=== PATIENT | male | born 1975 | race Caucasian/White ===

== ENCOUNTER 2021-11-18 07:48 | Outpatient (REF) | payer OTHER, SELFPAY ==
--- NOTE | ~2021-11-18 | XR_ITS ---
EXAMINATION: XR CHEST XR LUMBAR SPINE CLINICAL INFORMATION: Dyspnea. COMPARISON: None TECHNIQUE: Chest 2 views. Lumbar spine 3 views. FINDINGS: CHEST: The lungs are well-expanded and clear of acute pneumonic process. The heart size and pulmonary vascularity normal. There is mild spondylosis of dorsal spine. No lytic process. LUMBAR SPINE: There is normal lumbar lordosis. The vertebral heights and alignment is normal. There is mild loss of L5/S1 disc height with ventral spondylosis. The rest of the disc heights are normal. SI joints are normal. No visible acute fracture, dislocation or lytic process seen. XR/XR lumbar spine 2-3V IMPRESSION: 1. Unremarkable chest exam. 2. Degenerative disc changes L5-S1 disc level with mild ventral spondylosis. No visible acute fracture, dislocation or lytic process seen.
--- NOTE | ~2021-11-18 | XR_ITS ---
EXAMINATION: XR CHEST XR LUMBAR SPINE CLINICAL INFORMATION: Dyspnea. COMPARISON: None TECHNIQUE: Chest 2 views. Lumbar spine 3 views. FINDINGS: CHEST: The lungs are well-expanded and clear of acute pneumonic process. The heart size and pulmonary vascularity normal. There is mild spondylosis of dorsal spine. No lytic process. LUMBAR SPINE: There is normal lumbar lordosis. The vertebral heights and alignment is normal. There is mild loss of L5/S1 disc height with ventral spondylosis. The rest of the disc heights are normal. SI joints are normal. No visible acute fracture, dislocation or lytic process seen. XR/XR chest 1V IMPRESSION: 1. Unremarkable chest exam. 2. Degenerative disc changes L5-S1 disc level with mild ventral spondylosis. No visible acute fracture, dislocation or lytic process seen.
[2021-11-18 11:51] LABS: MANUAL DIFF FLAG NO
[2021-11-18 11:53] LABS: Basophils Percent Auto 0.5 % (0-2); Eosinophils Absolute Auto 0.2 X10*3/uL (0.0-0.4); Hematocrit 47.2 % (42.0-52.0); Imm Gran Abs Auto 0.04 X10*3/uL (0.00-0.03); Imm Gran Pct Auto 0.7 % (0.0-0.4); Lymphocytes Absolute Auto 1.8 X10*3/uL (1.2-4.9); Lymphocytes Percent Auto 31.5 % (20-40); Mean Corpuscular HGB Conc 33.9 g/dl (31.0-36.0); Mean Corpuscular Hemoglobin 28.8 pg (27.0-33.0); Mean Corpuscular Volume 84.9 fL (80.0-98.0); Mean Platelet Volume 10.4 fL (9.4-12.4); Monocytes Absolute Auto 0.6 X10*3/uL (0.1-1.2); Monocytes Percent Auto 10.9 % (2-11); Neutrophils Percent Auto 53.4 % (45-73); Platelet Count 212 X10*3/uL (160-400); Red Blood Count 5.56 X10*6/uL (4.60-5.80); Red Cell Distribution Width 12.7 % (11.0-16.0); White Blood Count 5.6 X10*3/uL (4.8-10.8)
[2021-11-18 12:10] LABS: Alanine Aminotransferase 48 U/L (0-40); Albumin Level 4.7 g/dL (3.5-5.0); Alkaline Phosphatase 73 U/L (39-117); Anion Gap 15 (12-20); Aspartate Amino Transferase 35 U/L (5-37); Bilirubin Total 0.7 mg/dL (0.0-1.0); Blood Urea Nitrogen 18 mg/dL (9-16); Calcium 9.5 mg/dL (8.4-10.2); Carbon Dioxide 25 mmol/L (22-29); Chloride 103 mmol/L (96-108); Cholesterol 229 mg/dL; Estimated Glomerular Filt Rate > 60; Glucose Fasting 128 mg/dL (60-99); HDL Cholesterol 56 mg/dL; LDL Cholesterol Calculated 159 mg/dl; Potassium 4.4 mmol/L (3.3-5.1); Sodium 139 mmol/L (135-145); Total Protein 8.1 g/dL (6.5-8.0); Triglycerides 72 mg/dL
[2021-11-18 12:34] LABS: Vitamin D 25-OH Total 30.4 ng/mL (>30)
[2021-11-18 12:45] LABS: Folate 14.2 ng/mL (> or = 4.0); Vitamin B12 381 pg/mL (200-900)
== END 2021-11-18 07:49 | disposition home or self-care (01) ==
LOC: HO.HMGCX 07:48
PROVIDERS: PCP Internal Medicine; Visit Provider Internal Medicine
DX: Z00.00 Encounter for general adult medical examination without abnormal findings (principal); R06.09 Other forms of dyspnea; M54.50 Low back pain, unspecified
CPT/HCPCS: 36415; 71045; 72100; 80053; 80061; 82306; 82607; 82746; 85025

== ENCOUNTER → 2021-12-18 15:40 | Outpatient (REF) | payer OTHER, SELFPAY ==
--- NOTE | 2021-12-18 15:43 | CA_ITS ---
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 The visually estimated ejection fraction is between 55-60%. - No obvious valvular pathology seen on this study. Findings Left Ventricle Normal left ventricular cavity size. There is normal left ventricular wall thickness. The left ventricular systolic function is normal. The visually estimated ejection fraction is between 55-60%. There is no evidence of regional wall motion abnormalities. Diastolic function is normal for age. Right Ventricle Normal right ventricular cavity size and systolic function. Atria Both atria are normal in size. Aortic Valve There is a normal trileaflet aortic valve. There is no aortic valve stenosis. There is no aortic valve regurgitation. Mitral Valve The mitral valve appears normal. There is trace mitral valve regurgitation. There is no mitral valve stenosis. Pulmonic Valve The pulmonic valve is likely normal. Tricuspid Valve Normal tricuspid valve structure. There is mild tricuspid valve regurgitation. There is no evidence of pulmonary hypertension. Great Vessels The aortic annulus, sinuses of valsalva, and asc aorta are normal in size. Venous The inferior vena cava is normal in size and collapses greater than 50% with inspiration. Pericardium/Pleural There is no evidence of pericardial effusion. Prior Study Comparison No prior study available for comparison. Recommendations, Care & Conclusions No obvious valvular pathology seen on this study. Measurements 2D Linear Measurements IVSd: 1.08 0.6-0.9/0.6-1.0 cm LVIDd: 5.22 3.9-5.3/4.2-5.9 cm LVIDd Index: 2.35 2.4-3.2/2.2-3.1 cm/m2 LVIDs: 3.32 2.0-3.6 cm LVPWd: 0.97 0.7-1.1 cm Ao Root: 3.50 2.1-3.5 cm LA Diam: 3.70 2.7-3.8/3.0-4.0 cm LAIDs Index: 1.67 1.5-2.3 cm/m2 LV Mass: 251.52 67-162/88-224 g LV Mass Index: 113.30 43-95/49-115 g/m2 LVOT Diam: 2.30 3.0+(-)1.3 cm 2D Systolic Function EF 4C: 52.10 >55% EF 2C: 61.40 >55% EF BiP: 58.40 >55% Mitral Valve MV Pk E: 0.65 MV PK A: 0.52 MV Decel Time: 325.00 E/A: 1.20 E'Lateral: 16.10 E'Medial: 7.83 E/E' Med: 8.30 E/E' Lat: 4.00 PHT: 95.00 MVA PHT: 2.32 Decel Mcdonough: 1.99 Aortic Valve AoV Pk Nilton: 1.72 AoV Mn Nilton: 1.04 AoV VTI: 0.35 AoV Pk Grad: 12.00 Aov Mn Grad: 5.00 KATHERINE Cont.VTI: 3.47 LVOT LVOT Pk Nilton: 1.51 LVOT Mn Nilton: 1.02 LVOT VTI: 0.30 LVOT Pk Grad: 9.00 LVOT Mn Grad: 5.00 LVOT Diam: 2.30 LVOT Area: 4.15 Diastolic Function MV Pk E: 0.65 MV Pk A: 0.52 E/A: 1.20 E'Medial: 7.83 E/E' Med: 8.30 E' Laterial: 16.10 E/E' Lat: 4.00 Right Ventricle TAPSE (mm): 32.00 TVS' Nilton: 13.00 Tricuspid Valve TR Pk Nilton: 2.24 TR Pk Grad: 20.00 RA Press: 3.00 RVSP: 23.00 Great Vessels Aorta Ao Root-2D: 3.50 2.0-3.7 cm Ao Asc: 3.10 2.1-3.4 cm Pulmonary Valve PV Pk Nilton: 1.11 Peak PV Grad: 5.00 Updated in Other Vendor System with Status of Final Gordon Heard MD electronically signed on 12/19/2021 1:05:21 PM with status of Final
== END ==
LOC: HO.CARD 15:40
PROVIDERS: PCP Internal Medicine; Visit Provider Internal Medicine
DX: R06.09 Other forms of dyspnea (principal)
CPT/HCPCS: 93306

== ENCOUNTER → 2021-12-25 15:35 | Outpatient (BNVA) | payer OTHER, SELFPAY | PROVIDERS: PCP Internal Medicine; Visit Provider Internal Medicine | DX: K62.5 Hemorrhage of anus and rectum (principal); K64.9 Unspecified hemorrhoids; N40.0 Benign prostatic hyperplasia without lower urinary tract symptoms | CPT/HCPCS: 99202 ==

== ENCOUNTER 2022-02-20 15:37 | Outpatient (REF) | payer OTHER, SELFPAY ==
[2022-02-20 17:33] LABS: Hematocrit 42.1 % (42.0-52.0); Hemoglobin 14.4 g/dl (14.0-18.0); Mean Corpuscular HGB Conc 34.2 g/dl (31.0-36.0); Mean Corpuscular Hemoglobin 29.1 pg (27.0-33.0); Mean Corpuscular Volume 85.1 fL (80.0-98.0); Platelet Count 198 X10*3/uL (160-400); Red Blood Count 4.95 X10*6/uL (4.60-5.80); Red Cell Distribution Width 12.2 % (11.0-16.0); White Blood Count 8.1 X10*3/uL (4.8-10.8)
== END 2022-02-20 15:38 | disposition home or self-care (01) ==
LOC: HO.LAB 15:37
PROVIDERS: PCP Internal Medicine; Visit Provider Internal Medicine
DX: K62.5 Hemorrhage of anus and rectum (principal); K64.9 Unspecified hemorrhoids
CPT/HCPCS: 36415; 85027; 99212

== ENCOUNTER 2022-03-10 07:49 | Outpatient (REF) | payer OTHER, SELFPAY ==
[2022-03-10 08:51] LABS: Estimated Average Glucose 160 mg/dL; Hemoglobin A1c % 7.2 %
[2022-03-10 09:11] LABS: Alanine Aminotransferase 35 U/L (0-40); Albumin Level 4.3 g/dL (3.5-5.0); Alkaline Phosphatase 63 U/L (39-117); Anion Gap 10 (12-20); Aspartate Amino Transferase 21 U/L (5-37); Bilirubin Total 0.8 mg/dL (0.0-1.0); Blood Urea Nitrogen 17 mg/dL (9-16); Calcium 9.5 mg/dL (8.4-10.2); Carbon Dioxide 27 mmol/L (22-29); Chloride 107 mmol/L (96-108); Cholesterol 213 mg/dL; Estimated Glomerular Filt Rate > 60; Glucose Fasting 157 mg/dL (60-99); HDL Cholesterol 44 mg/dL; LDL Cholesterol Calculated 146 mg/dl; Sodium 140 mmol/L (135-145); Total Protein 7.3 g/dL (6.5-8.0); Triglycerides 116 mg/dL
== END 2022-03-10 07:50 | disposition home or self-care (01) ==
LOC: HO.LAB 07:49
PROVIDERS: PCP Internal Medicine; Visit Provider Internal Medicine
DX: E78.5 Hyperlipidemia, unspecified (principal); R73.9 Hyperglycemia, unspecified
CPT/HCPCS: 36415; 80053; 80061; 83036

== ENCOUNTER 2022-04-12 11:48 | Day surgery (SDC) | payer OTHER, SELFPAY ==
[2022-04-06 15:22] VITALS: BMI 29.1
[2022-04-12 11:49] VITALS: BP 170/86; PULSE 64; RESP 16; TEMP 37.3; O2SAT 99; BMI 28.2
--- NOTE | 2022-04-12 11:59 | HO.ANESPROP2 ---
HPI - Anesthesia Eval Consult details Narrative: For colonoscopy [facility] Active Problems Active Problems: All Active Problems (Updated 04/06/22 @ 15:17 by Lynnette Saxena, RN) WILCOX (dyspnea on exertion) (Acute) Annual physical exam (Acute) Lower back pain (Acute) Rectal bleed (Acute) Hyperglycemia (Acute) Hyperlipidemia (Acute) Hemorrhoids (Acute) Enlarged prostate on rectal examination (Acute) DM type 2 (diabetes mellitus, type 2) (Acute) Past Medical History Medical History (Updated 04/06/22 @ 15:17 by Lynnette Saxena RN) Diabetes Elevated cholesterol Narrative: essentially normal echo Family History Family History Father CVA (cerebral vascular accident), Onset Age: 65 Mother Diabetes CVA (cerebral vascular accident), Onset Age: 70 Family history of problems with anesthesia: No Surgical History Surgical History No pertinent past surgical history History of Problems with Anesthesia: No Social History Social History Household Members Other:: , from [place], works at [employer] Housing: Apartment Patient Tobacco Use Status: Never used Tobacco e-Cigarette/Vaping Use: Never Used Second Hand Smoke Exposure: No Use of substances other than those prescribed or required for medical reasons: No Are you DNR?: No Advance Directives: No Advance Directives Information Provided: Yes Current occupational status: employed Cognitive needs: No Hearing needs: No Vision needs: No Meds Allergies Allergy/AdvReac Type Severity Reaction Status Date / Time No Known Allergies Allergy Verified 03/14/22 14:29 Exam Exam Date and Time: April 12, 2022 1159 Height,Weight and Vital Signs: Height 6 ft 2 in Weight 102.965 kg Airway Mallampati Class: I TM Dist: >3cm Neck ROM: Full Loose/Missing/Broken Teeth: No Heart: ok Lungs: ok Assessment and Plan Assessment Anesthesia Assessment: Anesthesia Plan Discussed and Chart Reviewed Final Anesthetic Review Family History of Problems with Anesthesia: No History of Problems with Anesthesia: No NPO: Yes ASA Class: II Final Preanesthetic Review: No Changes in Pt Med Stat, Meds/Allgs Chart Reviewed, Consent Obtained/Reviewed and Anes Risks/Benef Reviewed Patient Risk: Low Procedure Risk: Low Anesthetic Plan Anesthetic Plan: MAC: and Agree w/ Assess. and Plan Disposition: Standard PACU
[2022-04-12 12:04] LABS: Glucose, Whole Blood 109 mg/dL (60-115)
[2022-04-12] MEDS: Lactated Ringers 1,000 ML 100 ML IVCONT (12:14)
[2022-04-12 12:58] VITALS: BP 101/59; PULSE 70; RESP 16; TEMP 36.7; O2SAT 98
--- NOTE | 2022-04-12 12:59 | MHC.SHP ---
Pre-Procedural Eval Section A Date of Service: 04/12/22 Section B Chief Complaint: rectal bleeding,hemorrhoids,benign prostatic Details of Present Illness: Cont to have intermittent bleeding without any changes in BMs. Relevant Social History: None Present Medications: see Short Stay Collaborative assessment Medical History: No relevant PMH History of Previous Operations: No relevant previous surgery Allergies: Allergies Allergy/AdvReac Type Severity Reaction Status Date / Time No Known Allergies Allergy Verified 04/12/22 12:08 Review of Systems Review of Systems Comment: 10 point ROS negative except as above Exam Exam Comment: Gen appear: No acute distress HEENT: no icterus Chest: No overt resp distress Abd: soft, nontender, nondistended Psych: Stable affect, answering questions appropriately Neuro: A/Ox3 noted to move all extremities spontaneously Ext: no peripheral edema Plan Diagnosis/Plan: Unchanged I have reviewed the history and physical and performed a pertinent physical examination on my patient. No changes have occurred unless specified. Time Spent With Patient Time: Total time managing care of this patient today ____ minutes.
--- NOTE | 2022-04-12 13:00 | P.OP_ITS ---
Operative Note Operative Note Date of Service: 04/12/22 Narrative: Procedure: Colonoscopy Indication: BRBPR Endoscopist: Daly Hilton MD Anesthesia Provider: Dr Abhishek Rader Anesthesia type: MAC Instrument: Olympus [id number]-[id number] Consent: Indication, risks vs benefits, and alternatives were discussed with the patient who gave written informed consent to proceed. An well services operator was utilized to assist with the consent. EKG, pulse, pulse oximetry and blood pressure were monitored throughout the procedure. Please see anesthesia flowsheet. Procedure: The patient was brought to the procedure room and placed in the left lateral decubitus position. IV medications were administered by the anesthesia provider in attendance. A digital rectal exam was performed which was normal. The colonoscope was then inserted through the anus and advanced through the colon to the cecum at 70 cm,and terminal ileum. Appendiceal orifice and ileocecal valve are identified.Mucosa was carefully examined under high definition white light as the instrument was slowly withdrawn in a retrograde panoramic fashion. Ascending colon was intubated twice. Retroflexion was performed in rectum. The procedure was not difficult. There were no immediate obvious complications. The quality of the prep was BBPS: 2+3+3 = adequate Withdrawal time 17 minutes. Limitations: No limitations. Findings: Mucosa: Patchy erosions with whitish exudate and erythema worse in rectum and progressively improved until 55 cm in descending colon. Cold forceps biospsies were obtained from descending, sigmoid and rectum. Protruding lesions: * 1 sessile polyp of size 2 mm in transverse colon. Cold forceps polypectomy was performed. The polyp was completely removed and retrieved. * 1 sessile polyp of size 2 mm in rectum. Cold forceps polypectomy was performed. The polyp was completely removed and retrieved. * Large internal hemorrhoids [without] stigmata of recent bleeding. Impression: 1. Abnormal left colon mucosa (biopsy) 2. Total of 2 polyps removed from transverse colon and rectum. 3. Internal hemorrhoids Recommendations: - Follow path results. Suspect mild UC however will await histology to r/o infection before initiating steroids.
[2022-04-12 13:27] VITALS: BP 110/60; PULSE 68; RESP 18; TEMP 36.7; O2SAT 99
== END 2022-04-12 13:45 | disposition home or self-care (01) ==
PROVIDERS: PCP Internal Medicine; Visit Provider Internal Medicine
PROC: 0DJD8ZZ Inspection of Lower Intestinal Tract, Via Natural or Artificial Opening Endoscopic (ICD-10-PCS; CPT 45378; principal; 2022-04-12 12:40)
DX: K62.5 Hemorrhage of anus and rectum (principal); D12.3 Benign neoplasm of transverse colon; K62.1 Rectal polyp; K64.8 Other hemorrhoids; K63.89 Other specified diseases of intestine; N40.0 Benign prostatic hyperplasia without lower urinary tract symptoms; E78.00 Pure hypercholesterolemia, unspecified; E11.9 Type 2 diabetes mellitus without complications; Z79.84 Long term (current) use of oral hypoglycemic drugs; Z79.899 Other long term (current) drug therapy
CPT/HCPCS: 45380; 82947; 88305

== ENCOUNTER → 2022-04-27 12:58 | Outpatient (BNVA) | payer OTHER, SELFPAY | PROVIDERS: PCP Internal Medicine; Visit Provider Internal Medicine | DX: K64.9 Unspecified hemorrhoids (principal); K62.5 Hemorrhage of anus and rectum | CPT/HCPCS: 99212 ==

== ENCOUNTER 2022-07-21 08:47 | Outpatient (REF) | payer OTHER, SELFPAY ==
[2022-07-21 11:45] LABS: Estimated Average Glucose 126 mg/dL
[2022-07-21 11:47] LABS: Alanine Aminotransferase 33 U/L (0-40); Albumin Level 4.4 g/dL (3.5-5.0); Alkaline Phosphatase 60 U/L (39-117); Anion Gap 11 (12-20); Aspartate Amino Transferase 27 U/L (5-37); Blood Urea Nitrogen 13 mg/dL (9-16); Calcium 9.4 mg/dL (8.4-10.2); Carbon Dioxide 26 mmol/L (22-29); Chloride 108 mmol/L (96-108); Cholesterol 149 mg/dL; Estimated Glomerular Filt Rate > 60; Glucose Fasting 112 mg/dL (60-99); HDL Cholesterol 50 mg/dL; LDL Cholesterol Calculated 88 mg/dl; Sodium 141 mmol/L (135-145); Total Protein 7.1 g/dL (6.5-8.0); Triglycerides 59 mg/dL
[2022-07-21 12:06] LABS: Creatinine Urine 114.63 mg/dL; Microalbumin Urine < 5.0 mg/L
== END 2022-07-21 08:48 | disposition home or self-care (01) ==
LOC: HO.HMGCLDS 08:47
PROVIDERS: PCP Internal Medicine; Visit Provider Internal Medicine
DX: E11.9 Type 2 diabetes mellitus without complications (principal); E78.5 Hyperlipidemia, unspecified
CPT/HCPCS: 36415; 80053; 80061; 82043; 83036

== ENCOUNTER → 2022-07-30 13:26 | Outpatient (BNVA) | payer OTHER, SELFPAY | PROVIDERS: PCP Internal Medicine; Visit Provider Internal Medicine | DX: K64.9 Unspecified hemorrhoids (principal); K62.5 Hemorrhage of anus and rectum | CPT/HCPCS: 99212 ==

== ENCOUNTER 2023-05-04 07:17 | Outpatient (REF) | payer OTHER, SELFPAY ==
[2023-05-04 11:55] LABS: MANUAL DIFF FLAG NO
[2023-05-04 12:02] LABS: Basophils Percent Auto 0.5 % (0-2); Eosinophils Absolute Auto 0.3 X10*3/uL (0.0-0.4); Eosinophils Percent Auto 4.1 % (0-4); Imm Gran Abs Auto 0.05 X10*3/uL (0.00-0.03); Imm Gran Pct Auto 0.8 % (0.0-0.4); Lymphocytes Absolute Auto 1.7 X10*3/uL (1.2-4.9); Lymphocytes Percent Auto 28.6 % (20-40); Mean Corpuscular HGB Conc 34.1 g/dl (31.0-36.0); Mean Corpuscular Hemoglobin 29.7 pg (27.0-33.0); Mean Corpuscular Volume 87.1 fL (80.0-98.0); Mean Platelet Volume 10.5 fL (9.4-12.4); Monocytes Absolute Auto 0.6 X10*3/uL (0.1-1.2); Monocytes Percent Auto 10.1 % (2-11); Neutrophils Absolute Auto 3.4 x10*3/uL (2.0-8.3); Neutrophils Percent Auto 55.9 % (45-73); Platelet Count 229 X10*3/uL (160-400); Red Blood Count 5.05 X10*6/uL (4.60-5.80); Red Cell Distribution Width 12.7 % (11.0-16.0); White Blood Count 6.1 X10*3/uL (4.8-10.8)
[2023-05-04 12:11] LABS: Estimated Average Glucose 128 mg/dL; Hemoglobin A1c % 6.1 % (<6.0)
[2023-05-04 12:34] LABS: Alanine Aminotransferase 32 U/L (0-40); Albumin Level 4.2 g/dL (3.5-5.0); Alkaline Phosphatase 62 U/L (39-117); Anion Gap 10 (12-20); Aspartate Amino Transferase 37 U/L (5-37); Bilirubin Total 0.5 mg/dL (0.0-1.0); Blood Urea Nitrogen 16 mg/dL (9-16); Calcium 9.6 mg/dL (8.4-10.2); Carbon Dioxide 26 mmol/L (22-29); Chloride 109 mmol/L (96-108); Cholesterol 195 mg/dL (<200); Estimated Glomerular Filt Rate > 60; Glucose Fasting 120 mg/dL (60-99); HDL Cholesterol 53 mg/dL (>40); LDL Cholesterol Calculated 132 mg/dL (<100); Potassium 4.3 mmol/L (3.3-5.1); Sodium 141 mmol/L (135-145); Total Protein 7.5 g/dL (6.5-8.0); Triglycerides 51 mg/dL (<150)
[2023-05-04 13:04] LABS: Creatinine Urine 216.91 mg/dL; Microalbum/Creatinine Ratio Ur 3.6 ug/mg cr (<30)
== END 2023-05-04 07:18 | disposition home or self-care (01) ==
LOC: HO.HMGCLDS 07:17
PROVIDERS: PCP Internal Medicine; Visit Provider Internal Medicine
DX: E78.5 Hyperlipidemia, unspecified (principal); E11.9 Type 2 diabetes mellitus without complications
CPT/HCPCS: 36415; 80053; 80061; 82043; 82570; 83036; 85025

== ENCOUNTER 2023-05-08 13:42 | Outpatient (AMB) | payer OTHER, SELFPAY ==
--- NOTE | 2023-05-08 14:26 | MHC.PC.OV ---
Vital Signs 05/08/23 14:29 Height 6 ft 2 in Weight 220 lb BMI 28.2 BP 118/74 Blood Pressure Location Rt brachial Position Sitting Pulse 61 Pulse Source Pulse Oximeter Pulse Oximetry (%) 98 Oxygen Delivery Method Room Air Intake Visit Reasons: Followup diabetes/htn Information Interpreted: non-clinical & clinical Accompanied by: [place] Child Allergies No Known Allergies Allergy (Verified 05/08/23 14:30) Medication List - Last Reconciled 05/08/23 by Gunjan Majano MD atorvastatin 20 mg PO DAILY blood sugar diagnostic (OneTouch Ultra Test strips) 1 QD blood-glucose meter (OneTouch Ultra2 Meter) As directed metformin 850 mg PO BID Tobacco use date assessed: 05/08/23 Dental Screening Dental Screen Date: 05/08/23 Did you have a dental visit in the last 12 months?: No Did you have a dental problem in the last 6 months where you did not have access to dental care?: No Was dental information given to patient?: Patient has dentist HPI Followup diabetes/htn HPI Details Pt presents for PE. DM 2, hyperlipid, are stable on meds. PFSH Medical History Diabetes Elevated cholesterol Surgical History Hx of colonoscopy No pertinent past surgical history Family History Father CVA (cerebral vascular accident), Onset Age: 65 Mother Diabetes CVA (cerebral vascular accident), Onset Age: 70 Social History Household Members Other:: , from [place], works at [employer] Housing: Apartment Patient Tobacco Use Status: Never used Tobacco e-Cigarette/Vaping Use: Never Used Second Hand Smoke Exposure: No Current occupational status: employed Cognitive needs: No Hearing needs: No Vision needs: No Questionnaire PHQ-9 Over the last 2 weeks, how often have you been bothered by any of the following problems? 1. Little interest or pleasure in doing things: not at all 2. Feeling down, depressed, or hopeless: not at all 3. Trouble falling or staying asleep, or sleeping too much: not at all 4. Feeling tired or having little energy: not at all 5. Poor appetite or overeating: not at all 6. Feeling bad about yourself - or that you are a failure or have let yourself or your family down: not at all 7. Trouble concentrating on things, such as reading the newspaper or watching television: not at all 8. Moving or speaking so slowly that other people could have noticed. Or the opposite - being so fidgety or restless that you have been moving around a lot more than usual: not at all 9. Thoughts that you would be better off or of hurting yourself in some way: not at all Total score: 0 Depression Screening Interpretation: Negative Depression Screening Done: Yes Source: Developed by Drs. Solomon Qureshi, Elissa Carranza, Gumaro Little and colleagues, with an educational karina from [employer]. Thrive Questionnaire Date Thrive assessed: 05/08/23 I am a: Patient What is your living situation today?: I have a steady place to live Within the past 12 months, did the food you bought not last and you didn't have the money to get more?: Never true Within the past 12 months, did you worry whether your food would run out before you got money to buy more?: Never true Do you have trouble paying for medicines?: No Do you have trouble getting transportation to medical appointments?: No Do you have trouble paying your heating and electricity bill?: No Do you have trouble taking care of your child, family member or friend?: No Do you have trouble with day-to-day activities such as bathing, preparing meals, shopping, managing finances, etc.?: No Are you currently unemployed and looking for a job?: No Are you interested in more education?: No Please select the resources that you would like help with: None THRIVE Score: 0 AUDIT C Alcohol Use Questionnaire (AUDIT-C) 1. How often do you have a drink containing alcohol?: Monthly or less 2. How many drinks containing alcohol do you have on a typical day when you are drinking?: 1 or 2 3. How often do you have six or more drinks on one occasion?: Never Total Score: 1 BRITTNEY-7 AMB Questionnaire BRITTNEY-7 Date BRITTNEY - 7 assessed: 05/08/23 Feeling nervous, anxious, or on edge: 0 = Not at all Not being able to stop or control worryin = Not at all Worrying too much about different things: 0 = Not at all Trouble relaxin = Not at all Being so restless that it is hard to sit still: 0 = Not at all Becoming easily annoyed or irritable: 0 = Not at all Feeling afraid as if something awful might happen: 0 = Not at all Total BRITTNEY-7 score (0-4 normal; 5-9 mild; 10-14 moderate; 15-21 severe): 0 Source: Developed by Drs. Solomon Qureshi, Elissa Carranza, Gumaro Little and colleagues, with an educational karina from [employer]. Review of Systems Const All systems reviewed & are unremarkable except as noted in HPI and below Reports no additional complaints Eyes Reports no additional complaints ENT Reports no additional complaints Card Reports no additional complaints Resp Reports no additional complaints GI Reports no additional complaints Reports no additional complaints Physical exam (Primary Care) Vital Signs: Last Vital Signs Pulse 61 05/08/23 14:29 BP 118/74 05/08/23 14:29 Pulse Ox 98 05/08/23 14:29 Oxygen Delivery Method Room Air 05/08/23 14:29 BMI result Body Mass Index 28.2 Tobacco/Smoking Status: Tobacco use Status Tobacco use date assessed 05/08/23 05/08/23 14:34 Patient Tobacco Use Status Never used Tobacco 05/08/23 14:42 Tobacco use type 05/08/23 14:42 e-Cigarette/Vaping Use Never Used 05/08/23 14:34 PHQ-9: PHQ-9 Score PHQ-9: Total score 0 05/08/23 14:39 Depression Screening Interpretation: Negative Thrive Assessment: Date of Thrive Assessment Date Thrive assessed 05/08/23 05/08/23 14:34 Const General: no acute distress HENMT Head: Yes normal to inspection Ears: hearing grossly normal bilaterally Face and sinus: Yes normal facial exam Mouth: Normal oral and palatal mucosa present Neck Neck: Yes no lymphadenopathy and Yes supple Resp Effort & Inspection: normal respiratory effort Auscultation: clear to auscultation bilaterally Cardio Rhythm: regular rhythm Heart sounds: S1 normal heart sound present and S2 normal heart sound present GI Inspection: Yes normal to inspection Palpation (GI): Soft to palpation Percussion: Yes normal to percussion Auscultation: normal bowel sounds Extrem Other: Diabetic foot exam skin is intact monofilament and vibration sensation intact bilaterally General: Yes no clubbing, cyanosis or edema Assessment and Plan Assessment & Plan (1) DM type 2 (diabetes mellitus, type 2): Code(s): E11.9 - Type 2 diabetes mellitus without complications Plan: A1c is 6.1, ADA diet increase exercise discussed with the patient. Continue metformin follow-up in 6 months with a fasting labs before. Patient is up-to-date with diabetic eye exam (2) Hyperlipidemia: Code(s): E78.5 - Hyperlipidemia, unspecified Plan: Restart atorvastatin (3) Annual physical exam: Code(s): Z00.00 - Encounter for general adult medical examination without abnormal findings Plan: Well-balanced diet regular physical activity discussed with the patient return in 6 months with a fasting labs before (4) Hx of colonoscopy: Comment: 03/2022 1 tubular adenoma, Dr. Hilton , recheck 5 yrs Code(s): Z98.890 - Other specified postprocedural states Orders: Orders Comprehensive [place]. Panel Fast 6 Months E11.9 - Type 2 diabetes mellitus without complications, E78.5 - Hyperlipidemia, unspecified, R73.9 - Hyperglycemia, unspecified Complete Blood Count Auto Diff 6 Months E11.9 - Type 2 diabetes mellitus without complications, E78.5 - Hyperlipidemia, unspecified, R73.9 - Hyperglycemia, unspecified Lipid Panel 6 Months E11.9 - Type 2 diabetes mellitus without complications, E78.5 - Hyperlipidemia, unspecified, R73.9 - Hyperglycemia, unspecified Hemoglobin A1c 6 Months E11.9 - Type 2 diabetes mellitus without complications, E78.5 - Hyperlipidemia, unspecified, R73.9 - Hyperglycemia, unspecified Microalbumin, Random (w Creat) 6 Months E11.9 - Type 2 diabetes mellitus without complications, E78.5 - Hyperlipidemia, unspecified, R73.9 - Hyperglycemia, unspecified Medications: New blood-glucose meter (OneTouch Ultra2 Meter) As directed 1 ea 0RF blood sugar diagnostic (OneTouch Ultra Test strips) 1 QD 100 ea 3RF Refilled atorvastatin 20 mg PO DAILY 90 tabs 3RF metformin 850 mg PO BID 180 tabs 3RF Coding Level of Care Code Est Pt Prev Care 40-64y(97804) Diagnoses DM type 2 (diabetes mellitus, type 2) E11.9 Hyperlipidemia E78.5 Annual physical exam Z00.00 Hx of colonoscopy Z98.890
[2023-05-08 14:29] VITALS: BP 118/74; PULSE 61; O2SAT 98; BMI 28.2
== END 2023-05-08 15:12 | disposition home or self-care (01) ==
PROVIDERS: PCP Internal Medicine; Visit Provider Internal Medicine
DX: E11.9 Type 2 diabetes mellitus without complications (principal); E78.5 Hyperlipidemia, unspecified; Z00.00 Encounter for general adult medical examination without abnormal findings; Z98.890 Other specified postprocedural states
CPT/HCPCS: 99396

== ENCOUNTER 2023-11-09 10:31 | Outpatient (REF) | payer OTHER, SELFPAY ==
[2023-11-09 13:08] LABS: MANUAL DIFF FLAG NO
[2023-11-09 13:10] LABS: Basophils Percent Auto 0.4 % (0-2); Eosinophils Absolute Auto 0.3 X10*3/uL (0.0-0.4); Eosinophils Percent Auto 4.8 % (0-4); Hematocrit 43.3 % (42.0-52.0); Hemoglobin 14.8 g/dl (14.0-18.0); Imm Gran Abs Auto 0.06 X10*3/uL (0.00-0.03); Imm Gran Pct Auto 0.8 % (0.0-0.4); Lymphocytes Absolute Auto 1.6 X10*3/uL (1.2-4.9); Lymphocytes Percent Auto 22.3 % (20-40); Mean Corpuscular HGB Conc 34.2 g/dl (31.0-36.0); Mean Corpuscular Hemoglobin 29.7 pg (27.0-33.0); Mean Corpuscular Volume 86.9 fL (80.0-98.0); Mean Platelet Volume 10.5 fL (9.4-12.4); Monocytes Absolute Auto 0.7 X10*3/uL (0.1-1.2); Monocytes Percent Auto 10.1 % (2-11); Neutrophils Absolute Auto 4.4 x10*3/uL (2.0-8.3); Neutrophils Percent Auto 61.6 % (45-73); Platelet Count 200 X10*3/uL (160-400); Red Blood Count 4.98 X10*6/uL (4.60-5.80); Red Cell Distribution Width 12.4 % (11.0-16.0); White Blood Count 7.1 X10*3/uL (4.8-10.8)
[2023-11-09 13:23] LABS: Estimated Average Glucose 131 mg/dL; Hemoglobin A1c % 6.2 % (<6.0); Total Hemoglobin (HGBA1C) 3673.5937 umol/L
[2023-11-09 13:36] LABS: Alanine Aminotransferase 25 U/L (0-40); Albumin Level 4.3 g/dL (3.5-5.0); Alkaline Phosphatase 56 U/L (39-117); Anion Gap 12 (12-20); Aspartate Amino Transferase 23 U/L (5-37); Bilirubin Total 0.8 mg/dL (0.0-1.0); Blood Urea Nitrogen 16 mg/dL (9-16); Calcium 9.4 mg/dL (8.4-10.2); Carbon Dioxide 25 mmol/L (22-29); Chloride 107 mmol/L (96-108); Cholesterol 149 mg/dL (<200); Estimated Glomerular Filt Rate > 60; Glucose Fasting 116 mg/dL (60-99); HDL Cholesterol 49 mg/dL (>40); LDL Cholesterol Calculated 87 mg/dL (<100); Potassium 3.8 mmol/L (3.3-5.1); Sodium 140 mmol/L (135-145); Total Protein 7.4 g/dL (6.5-8.0); Triglycerides 66 mg/dL (<150)
[2023-11-09 13:38] LABS: Creatinine Urine 144.03 mg/dL; Microalbum/Creatinine Ratio Ur 6.2 ug/mg cr (<30)
== END 2023-11-09 10:32 | disposition home or self-care (01) ==
LOC: HO.HMGCLDS 10:31
PROVIDERS: PCP Internal Medicine; Visit Provider Internal Medicine
DX: E78.5 Hyperlipidemia, unspecified (principal); R73.9 Hyperglycemia, unspecified
CPT/HCPCS: 36415; 80053; 80061; 82043; 82570; 83036; 85025

== ENCOUNTER 2023-11-11 13:22 | Outpatient (AMB) | payer OTHER, SELFPAY ==
[2023-11-11 13:25] VITALS: BP 120/74; PULSE 65; O2SAT 98; BMI 28.2
--- NOTE | 2023-11-11 13:25 | MHC.PC.OV ---
Vital Signs 11/11/23 13:25 Height 6 ft 2 in Weight 220 lb BMI 28.2 BP 120/74 Blood Pressure Location Rt brachial Position Sitting Pulse 65 Pulse Source Pulse Oximeter Pulse Oximetry (%) 98 Oxygen Delivery Method Room Air Intake Visit Reasons: PE Intake Note: Pt is here today for PE. Allergies No Known Allergies Allergy (Verified 11/11/23 13:26) Medication List - Last Reconciled 11/11/23 by Gunjan Majano MD atorvastatin 20 mg PO DAILY blood sugar diagnostic (OneTouch Ultra Test strips) 1 QD blood-glucose meter (OneTouch Ultra2 Meter) As directed metformin 850 mg PO BID Tobacco use date assessed: 11/11/23 Dental Screening Dental Screen Date: 11/11/23 Did you have a dental visit in the last 12 months?: Yes Did you have a dental problem in the last 6 months where you did not have access to dental care?: No Was dental information given to patient?: Patient has dentist HPI PE HPI Details Pt presents for PE. PFSH Medical History (Updated 11/11/23 @ 14:17 by Gunjan Majano MD) Hyperglycemia Elevated cholesterol Surgical History Hx of colonoscopy No pertinent past surgical history Family History Father CVA (cerebral vascular accident), Onset Age: 65 Mother Diabetes CVA (cerebral vascular accident), Onset Age: 70 Social History Household Members Other:: , from [place], works at [employer] Housing: Apartment Patient Tobacco Use Status: Never used Tobacco e-Cigarette/Vaping Use: Never Used Second Hand Smoke Exposure: No service: No Current occupational status: employed Cognitive needs: No Hearing needs: No Vision needs: No Questionnaire PHQ-9 Over the last 2 weeks, how often have you been bothered by any of the following problems? 1. Little interest or pleasure in doing things: not at all 2. Feeling down, depressed, or hopeless: not at all 3. Trouble falling or staying asleep, or sleeping too much: not at all 4. Feeling tired or having little energy: not at all 5. Poor appetite or overeating: not at all 6. Feeling bad about yourself - or that you are a failure or have let yourself or your family down: not at all 7. Trouble concentrating on things, such as reading the newspaper or watching television: not at all 8. Moving or speaking so slowly that other people could have noticed. Or the opposite - being so fidgety or restless that you have been moving around a lot more than usual: not at all 9. Thoughts that you would be better off or of hurting yourself in some way: not at all Total score: 0 Depression Screening Interpretation: Negative Depression Screening Done: Yes 94509 - PHQ-9 Billing: Yes Source: Developed by Drs. Solomon Qureshi, Elissa Carranza, Gumaro Little and colleagues, with an educational karina from [employer]. Thrive Questionnaire Date Thrive assessed: 11/11/23 I am a: Patient What is your living situation today?: I have a steady place to live Within the past 12 months, did the food you bought not last and you didn't have the money to get more?: Often true Within the past 12 months, did you worry whether your food would run out before you got money to buy more?: Often true Do you have trouble paying for medicines?: No Do you have trouble getting transportation to medical appointments?: No Do you have trouble paying your heating and electricity bill?: No Do you have trouble taking care of your child, family member or friend?: No Do you have trouble with day-to-day activities such as bathing, preparing meals, shopping, managing finances, etc.?: No Are you interested in more education?: No Please select the resources that you would like help with: None Currently or been in a relationship where the following occur: I choose not to answer THRIVE Score: 2 AUDIT C Alcohol Use Questionnaire (AUDIT-C) 1. How often do you have a drink containing alcohol?: Monthly or less 2. How many drinks containing alcohol do you have on a typical day when you are drinking?: 1 or 2 3. How often do you have six or more drinks on one occasion?: Less than monthly Total Score: 2 BRITTNEY-7 AMB Questionnaire BRITTNEY-7 Date BRITTNEY - 7 assessed: 11/11/23 Feeling nervous, anxious, or on edge: 0 = Not at all Not being able to stop or control worryin = Not at all Worrying too much about different things: 0 = Not at all Trouble relaxin = Not at all Being so restless that it is hard to sit still: 0 = Not at all Becoming easily annoyed or irritable: 0 = Not at all Feeling afraid as if something awful might happen: 0 = Not at all Total BRITTNEY-7 score (0-4 normal; 5-9 mild; 10-14 moderate; 15-21 severe): 0 Source: Developed by Drs. Solomon Qureshi, Elsisa Carranza, Gumaro Little and colleagues, with an educational karina from [employer]. BRITTNEY-7 Assessment Billing BRITTNEY-7 Assessment Tool: BRITTNEY-7 Assessment 38978 Review of Systems Const All systems reviewed & are unremarkable except as noted in HPI and below Eyes Reports no additional complaints ENT Reports no additional complaints Card Reports no additional complaints Resp Reports no additional complaints GI Reports no additional complaints Reports no additional complaints Musc Reports no additional complaints Physical exam (Primary Care) Vital Signs: Last Vital Signs Pulse 65 11/11/23 13:25 BP 120/74 11/11/23 13:25 Pulse Ox 98 11/11/23 13:25 Oxygen Delivery Method Room Air 11/11/23 13:25 BMI result Body Mass Index 28.2 Tobacco/Smoking Status: Tobacco use Status Tobacco use date assessed 11/11/23 11/11/23 13:29 Patient Tobacco Use Status Never used Tobacco 11/11/23 13:29 Tobacco use type 05/08/23 15:06 e-Cigarette/Vaping Use Never Used 11/11/23 13:29 PHQ-9: PHQ-9 Score PHQ-9: Total score 0 11/11/23 13:29 Depression Screening Interpretation: Negative Thrive Assessment: Date of Thrive Assessment Date Thrive assessed 11/11/23 11/11/23 13:29 Currently or been in a relationship where the following occur: I choose not to answer Const General: no acute distress HENMT Head: Yes normal to inspection Ears: hearing grossly normal bilaterally General nose exam: Normal external nose present Face and sinus: Yes normal facial exam Mouth: Normal oral and palatal mucosa present Neck Neck: Yes no lymphadenopathy and Yes supple Resp Effort & Inspection: normal respiratory effort Auscultation: clear to auscultation bilaterally Cardio Rhythm: regular rhythm Heart sounds: S1 normal heart sound present and S2 normal heart sound present GI Inspection: Yes normal to inspection Palpation (GI): Soft to palpation Percussion: Yes normal to percussion Auscultation: normal bowel sounds Assessment and Plan Assessment & Plan (1) Hx of colonoscopy: Comment: 03/2022 1 tubular adenoma, Dr. Hilton , recheck 5 yrs Code(s): Z98.890 - Other specified postprocedural states (2) DM type 2 (diabetes mellitus, type 2): Code(s): E11.9 - Type 2 diabetes mellitus without complications Plan: A1C IS 6.2, ADA DIET INCREASE EXERCISE WEIGHT LOSS DISCUSSED WITH THE PATIENT CONTINUE METFORMIN FOLLOW-UP IN 6 MONTHS WITH A FASTING LABS BEFORE (3) Elevated cholesterol: Code(s): E78.00 - Pure hypercholesterolemia, unspecified Plan: Continue statin (4) Annual physical exam: Code(s): Z00.00 - Encounter for general adult medical examination without abnormal findings Plan: Well-balanced diet regular physical activity discussed with the patient, return in 6 months Orders: Orders Comprehensive [place]. Panel Fast 6 Months E11.9 - Type 2 diabetes mellitus without complications, E78.5 - Hyperlipidemia, unspecified, Z00.00 - Encounter for general adult medical examination without abnormal findings Microalbumin, Random (w Creat) 6 Months E11.9 - Type 2 diabetes mellitus without complications, E78.5 - Hyperlipidemia, unspecified, Z00.00 - Encounter for general adult medical examination without abnormal findings Complete Blood Count Auto Diff 6 Months E11.9 - Type 2 diabetes mellitus without complications, E78.5 - Hyperlipidemia, unspecified, Z00.00 - Encounter for general adult medical examination without abnormal findings Lipid Panel 6 Months E11.9 - Type 2 diabetes mellitus without complications, E78.5 - Hyperlipidemia, unspecified, Z00.00 - Encounter for general adult medical examination without abnormal findings Hemoglobin A1c 6 Months E11.9 - Type 2 diabetes mellitus without complications, E78.5 - Hyperlipidemia, unspecified, Z00.00 - Encounter for general adult medical examination without abnormal findings Coding Level of Care Code Est Pt Prev Care 40-64y(98785) Diagnoses Hx of colonoscopy Z98.890 DM type 2 (diabetes mellitus, type 2) E11.9 Elevated cholesterol E78.00 Annual physical exam Z00.00 Additional Codes BRITTNEY-7 Assessment Billing - BRITTNEY-7 Assessment Tool: BRITTNEY-7 Assessment [id number] ([id number])
== END 2023-11-11 14:18 | disposition home or self-care (01) ==
PROVIDERS: PCP Internal Medicine; Visit Provider Internal Medicine
DX: Z98.890 Other specified postprocedural states (principal); E11.9 Type 2 diabetes mellitus without complications; E78.00 Pure hypercholesterolemia, unspecified; Z00.00 Encounter for general adult medical examination without abnormal findings

== ENCOUNTER → 2023-11-11 13:22 | Outpatient (BNVA) | payer OTHER, SELFPAY | PROVIDERS: PCP Internal Medicine; Visit Provider Internal Medicine | DX: Z00.00 Encounter for general adult medical examination without abnormal findings (principal); E11.9 Type 2 diabetes mellitus without complications; E78.00 Pure hypercholesterolemia, unspecified; Z98.890 Other specified postprocedural states | CPT/HCPCS: 96127; 99396 ==

== ENCOUNTER 2024-05-29 13:53 | Outpatient (AMB) | payer OTHER, SELFPAY ==
[2024-05-29 14:01] VITALS: BP 108/66; PULSE 66; RESP 18; O2SAT 98; BMI 28.8
--- NOTE | 2024-05-29 14:01 | A.OFFPC_ITS ---
Vital Signs 05/29/24 14:01 Height 6 ft 2 in Weight 224 lb BMI 28.8 BP 108/66 Blood Pressure Location Rt brachial Position Sitting Respiration 18 Pulse 66 Pulse Source Pulse Oximeter Pulse Oximetry (%) 98 Oxygen Delivery Method Room Air Intake Visit Reasons: 6m F/U Intake Note: Pt is here today for 6 months follow up visit. Allergies No Known Allergies Allergy (Verified 05/29/24 14:10) Medication List - Last Reconciled 05/29/24 by Gunjan Majano MD atorvastatin 20 mg PO DAILY blood sugar diagnostic (OneTouch Ultra Test strips) 1 QD blood-glucose meter (OneTouch Ultra2 Meter) As directed metformin 850 mg PO BID Tobacco use date assessed: 05/29/24 Dental Screening Dental Screen Date: 11/11/23 HPI 6m F/U HPI Details Pt presents for DM 2 and hyperlipid, stable on meds. PFSH Surgical History Hx of colonoscopy No pertinent past surgical history Family History Father CVA (cerebral vascular accident), Onset Age: 65 Mother Diabetes CVA (cerebral vascular accident), Onset Age: 70 Social History Household Members Other:: , from [place], works at [employer] Housing: Apartment Patient Tobacco Use Status: Never used Tobacco e-Cigarette/Vaping Use: Never Used Second Hand Smoke Exposure: No service: No Current occupational status: employed Cognitive needs: No Hearing needs: No Vision needs: No Questionnaire PHQ-9 Over the last 2 weeks, how often have you been bothered by any of the following problems? 1. Little interest or pleasure in doing things: not at all 2. Feeling down, depressed, or hopeless: not at all 3. Trouble falling or staying asleep, or sleeping too much: not at all 4. Feeling tired or having little energy: not at all 5. Poor appetite or overeating: not at all 6. Feeling bad about yourself - or that you are a failure or have let yourself or your family down: not at all 7. Trouble concentrating on things, such as reading the newspaper or watching television: not at all 8. Moving or speaking so slowly that other people could have noticed. Or the opposite - being so fidgety or restless that you have been moving around a lot more than usual: not at all 9. Thoughts that you would be better off or of hurting yourself in some way: not at all Total score: 0 Depression Screening Interpretation: Negative Depression Screening Done: Yes [id number] - PHQ-9 Billing: Yes Source: Developed by Drs. Solomon Qureshi, Elissa Carranza, Gumaro Little and colleagues, with an educational karina from [employer]. Thrive Questionnaire Date Thrive assessed: 05/29/24 I am a: Patient What is your living situation today?: I have a steady place to live Within the past 12 months, did the food you bought not last and you didn't have the money to get more?: Often true Within the past 12 months, did you worry whether your food would run out before you got money to buy more?: Often true Do you have trouble paying for medicines?: No Do you have trouble getting transportation to medical appointments?: No Do you have trouble paying your heating and electricity bill?: No Do you have trouble taking care of your child, family member or friend?: No Do you have trouble with day-to-day activities such as bathing, preparing meals, shopping, managing finances, etc.?: No Are you interested in more education?: No Please select the resources that you would like help with: None Currently or been in a relationship where the following occur: I choose not to answer THRIVE Score: 2 AUDIT C Alcohol Use Questionnaire (AUDIT-C) 1. How often do you have a drink containing alcohol?: Monthly or less 2. How many drinks containing alcohol do you have on a typical day when you are drinking?: 1 or 2 3. How often do you have six or more drinks on one occasion?: Never Total Score: 1 BRITTNEY-7 AMB Questionnaire BRITTNEY-7 Date BRITTNEY - 7 assessed: 05/29/24 Feeling nervous, anxious, or on edge: 0 = Not at all Not being able to stop or control worryin = Not at all Worrying too much about different things: 0 = Not at all Trouble relaxin = Not at all Being so restless that it is hard to sit still: 0 = Not at all Becoming easily annoyed or irritable: 0 = Not at all Feeling afraid as if something awful might happen: 0 = Not at all Total BRITTNEY-7 score (0-4 normal; 5-9 mild; 10-14 moderate; 15-21 severe): 0 Source: Developed by Drs. Solomon Qureshi, Elissa Carranza, Gumaro Little and colleagues, with an educational karina from [employer]. BRITTNEY-7 Assessment Billing BRITTNEY-7 Assessment Tool: BRITTNEY-7 Assessment [id number] Review of Systems Const All systems reviewed & are unremarkable except as noted in HPI and below Reports no additional complaints Eyes Reports no additional complaints ENT Reports no additional complaints Card Reports no additional complaints Resp Reports no additional complaints GI Reports no additional complaints Reports no additional complaints Musc Reports no additional complaints Physical exam (Primary Care) Vital Signs: Last Vital Signs Pulse 66 05/29/24 14:01 Resp 18 05/29/24 14:01 BP 108/66 05/29/24 14:01 Pulse Ox 98 05/29/24 14:01 Oxygen Delivery Method Room Air 05/29/24 14:01 BMI result Body Mass Index 28.8 Tobacco/Smoking Status: Tobacco use Status Tobacco use date assessed 05/29/24 05/29/24 14:12 Patient Tobacco Use Status Never used Tobacco 05/29/24 14:12 Tobacco use type 05/08/23 15:06 e-Cigarette/Vaping Use Never Used 05/29/24 14:02 PHQ-9: PHQ-9 Score PHQ-9: Total score 0 05/29/24 14:31 Depression Screening Interpretation: Negative Thrive Assessment: Date of Thrive Assessment Date Thrive assessed 05/29/24 05/29/24 14:13 Currently or been in a relationship where the following occur: I choose not to answer Const General: no acute distress HENMT Mouth: Normal oral and palatal mucosa present Resp Effort & Inspection: normal respiratory effort Auscultation: clear to auscultation bilaterally Cardio Rhythm: regular rhythm Heart sounds: S1 normal heart sound present and S2 normal heart sound present GI Inspection: Yes normal to inspection Results AMB Hemoglobin A1c AMB Hemoglobin A1c 6.5 % Last Edit by STEFF Rajan on 05/29/24 14:3 8 Coding Level of Care Code Est Pt Level 3 (71929) Diagnoses DM type 2 (diabetes mellitus, type 2) E11.9 Hyperlipidemia E78.5 Additional Codes BRTITNEY-7 Assessment Billing - BRITTNEY-7 Assessment Tool: BRITTNEY-7 Assessment [id number] ([id number]) PHQ-9 - 17908 - PHQ-9 Billing: Yes ([id number]) Assessment & Plan Assessment & Plan (1) DM type 2 (diabetes mellitus, type 2): Code(s): E11.9 - Type 2 diabetes mellitus without complications Category: Medical Plan: A1c is 6.5 today. ADA diet regular physical activity discussed with the patient. Continue metformin return in October with a fasting labs before (2) Hyperlipidemia: Code(s): E78.5 - Hyperlipidemia, unspecified Category: Medical Plan: Continue statin Medications: Refilled metformin 850 mg PO BID 180 tabs 3RF atorvastatin 20 mg PO DAILY 90 tabs 3RF
== END 2024-05-29 14:58 | disposition home or self-care (01) ==
LOC: HO.HMCC 13:54
PROVIDERS: PCP Internal Medicine; Visit Provider Internal Medicine
DX: E11.9 Type 2 diabetes mellitus without complications (principal); E78.5 Hyperlipidemia, unspecified; Z13.9 Encounter for screening, unspecified

== ENCOUNTER → 2024-05-29 13:53 | Outpatient (BNVA) | payer OTHER, SELFPAY | PROVIDERS: PCP Internal Medicine; Visit Provider Internal Medicine | DX: E11.9 Type 2 diabetes mellitus without complications (principal); E78.5 Hyperlipidemia, unspecified | CPT/HCPCS: 83036; 96127; 99212 ==